=== PATIENT | female | born 1960 | race Hispanic/Latino ===

== ENCOUNTER → 2018-03-05 | Day surgery (SDC) | payer OTHER ==
[2018-02-18 09:13] LABS: BASOPHILS % 0.4 % (0.0-1.0); EOSINOPHILS # (AUTO) 0.1 (0.0-0.4); EOSINOPHILS % 1.1 % (0.0-6.0); HEMATOCRIT 42.7 % (34.2-44.1); HEMOGLOBIN 13.8 g/dL (12.0-16.0); LYMPHOCYTES % 24.6 % (18.0-39.1); MEAN CORPUSCULAR HEMOGLOBIN 29.3 pg (28-32); MEAN CORPUSCULAR HGB CONC 32.3 g/dL (31-35); MEAN CORPUSCULAR VOLUME 90.7 fL (81-99); MONOCYTES # (AUTO) 0.9 (0.2-0.8); MONOCYTES % 11.6 % (4.4-11.3); NEUTROPHILS # (AUTO) 4.8 (2.1-6.9); NEUTROPHILS % 60.5 % (38.7-80.0); PLATELET COUNT 221 x10e3/uL (140-360); RED BLOOD COUNT 4.71 x10e6/uL (3.6-5.1)
[~2018-03-05] MED LIST: AMLODIPINE BESYL5 MG PO; DEXAMETHASONE SOD PHOS INJ 4 MG/ML VIAL ONE; FENTANYL CITRATE/PF 100MCG/2 ML INJ ONE; HYDROCODONE/APAP 5MG-325MG TAB ONE; KETOROLAC TROMETHAMINE 30 MG/ML VIAL ONE; LEVOTHYROXINE50 MCG PO; LIDOCAINE HCL 2% JELLY 5 ML TUBE ONE; LIDOCAINE HCL 2% LOCAL INJ 5 ML SDV VIAL INJ ONE; LISINOPRIL10 MG PO; METOPROLOL SUCC25 MG PO; MIDAZOLAM HCL 2 MG/2 ML VIAL ONE; ONDANSETRON HCL INJ 2 MG/ML VIAL ONE; PROPOFOL IV EMULSION 10 MG/ML 20 ML VIAL ONE; SEVOFLURANE INHAL SOLN 250 ML PEN BTL ONE
--- OUTSIDE RECORDS SUMMARY | 2018-03-05 05:19 | XMS REPORT | Encounter Summary ---
Author Organization Unknown Address [address] [place] [id number] Phone [phone] Reason for Visit Medical Complaint Instructions 1. Influenza-like illness rapid flu (A+B) rapid strep group A, throat 2. Influenza due to Influenza virus, type B oseltamivir 75 mg capsule fluticasone 50 mcg/actuation nasal spray,suspension influenza (flu): care instructions benzonatate 200 mg capsule 3. Posterior rhinorrhea Discussion Note Pt in NAD, understands all information provided Plan of Care Patient Instructions Pt understands care instructions, will rest, increase fluids,monitor and treat fever with OCT tylenol/ibuprofen and practice good hand hygiene. Please seek care (PCP, Urgent Care, ER) or return to [facility] if symptoms get worse or do not resolve in 1 week. Reminders Provider Appointments None recorded. Lab Rapid Flu (A+B) 12/23/2017 [facility] Rapid Strep Group a, Throat 12/23/2017 [facility] Referral None recorded. Procedures None recorded. Surgeries None recorded. Imaging None recorded. Medications Name Start Date amlodipine 5 mg tablet TAKE 1 TABLET BY MOUTH EVERY DAY benzonatate 200 mg capsule Take 1 capsule 3 times a day by oral route for 5 days. chvcstpuksvoqok-mkzjwkdzexpvpjt-KL 2 mg-30 mg-10 mg/5 mL syrup TAKE 10 ML BY MOUTH EVERY 4 HOURS NEEDED Clenpiq 10 mg-3.5 gram-12 gram/160 mL oral solution DRINK 1 BOTTLE TWICE A DAY DIRECTED cyclobenzaprine 5 mg tablet TAKE 1 TABLET BY MOUTH 3 TIMES A DAY NEEDED diazepam 10 mg tablet TAKE 1 TABLET BY MOUTH FOR 1 HOUR BEFORE PROCEDURE Flucelvax Quad 3982-9719 (PF) 60 mcg (15 mcg x 4)/0.5 mL IM syringe TO BE ADMINISTERED BY PHARMACIST FOR IMMUNIZATION fluticasone 50 mcg/actuation nasal spray,suspension [place] 1 spray twice a day by intranasal route. IBU 600 mg tablet TAKE 1 TABLET BY MOUTH EVERY 6 HOURS NEEDED FOR PAIN/CRAMPS levothyroxine 50 mcg tablet TAKE 1 TABLET BY MOUTH EVERY MORNING lisinopril 40 mg tablet TAKE 1 TABLET BY MOUTH EVERY DAY methylprednisolone 4 mg tablets in a dose pack TAKE 6 TABLETS ON DAY 1 DIRECTED ON PACKAGE AND DECREASE BY 1 TAB EACH DAY FOR A TOTAL OF 6 DAYS metoprolol succinate ER 25 mg tablet,extended release 24 hr TAKE 1 TABLET BY MOUTH EVERY DAY misoprostol 200 mcg tablet INSERT 2 TABLETS VAGINALLY NIGHT BEFORE PROCEDURE(AT BEDTIME) THEN 1 BY MOUTH MORNING OF PROCEDURE mometasone 50 mcg/actuation nasal spray SPRAY 2 PUFFS INTO EACH NOSTRIL ONCE DAILY Myrbetriq 25 mg tablet,extended release TAKE 1 TABLET BY MOUTH EVERY DAY nabumetone 750 mg tablet TAKE 1 TABLET BY MOUTH DIRECTED TWICE A DAY oseltamivir 75 mg capsule Take 1 capsule twice a day by oral route for 5 days. oxybutynin chloride ER 10 mg tablet,extended release 24 hr TAKE 1 TABLET BY MOUTH EVERY DAY sulfamethoxazole 800 mg-trimethoprim 160 mg tablet TAKE 1 TABLET BY MOUTH TWICE DAILY FOR 10 DAYS tobramycin 0.3 %-dexamethasone 0.1 % eye drops,suspension INSTILL 1 DROP INTO THE AFFECTED EYE EVERY 6 HOURS FOR 5 DAYS tolterodine ER 2 mg capsule,extended release 24 hr TAKE 1 CAPSULE (2 MG) BY MOUTH ONCE DAILY FOR 30 DAYS Medications Administered None recorded. Vitals Height Weight BMI Blood Pressure 5 ft 2 in 213 lbs 39 kg/m2 124/80 mm[Hg] Lab Results Date Name Specimen Result Interpretation Description Value Range Status Address 12/23/2017 Rapid Flu (A+B) Influenza a negative [facility]: [address] [place] [address] Influenza B positive [facility]: [address] [place] [address] Rapid Strep Group a, Throat Result negative [facility]: [address] [place] [address] Swab Location Left and Right tonsillar pillars [facility]: [address] [place] [address] Allergies Code Code System Name Reaction Severity Status Onset NKDA Problems None recorded. Procedures None recorded. Vaccine List None recorded. Social History None recorded. Past Encounters 12/23/2017 Influenza-like Illness; Influenza Due to Influenza Virus, Type B; Posterior Rhinorrhea Garry Wilkerson, MAINTENANCE SERVICE SUPERVISOR-C: [address] [place] [address], Ph. History of Present Illness Sijee-Skqkdefxqo-Tvldizw Reported By: Patient HPI: Location: head/sinuses, throat. Quality: sore throat, nasal/sinus congestion. Duration: 3days. Severity: moderate. Context: no sick contacts, no foreign travel, non-smoker, allergies. Associated Symptoms: yellow sputum, fatigue, sweats, sore throat, headache Review of Systems:ROS as noted in the HPI Review of Systems Basic Reported By: Patient Physical Exam Adult Basic, Adult Female Complete Reported By: Patient Constitutional: General Appearance: healthy-appearing, well-nourished, well-developed. Level of Distress: NAD. Ambulation: ambulating normally Psychiatric: Mental Status: active and alert. Orientation: to time, to place, to person Eik-Dovz-Brput-Throat: Ears: no lesions on external ear, no outer ear tenderness, EACs clear, TMs clear. Hearing: no hearing loss. Nose: no lesions on external nose, nares patent, no septal deviation, nasal passages clear, sinus tenderness, nasal discharge--rhinorrhea, post nasal drip. Lips, Teeth, and Gums: no mouth or lip ulcers, no bleeding gums, normal dentition. Oropharynx: moist mucous membranes, no erythema, no exudates, tonsils not enlarged Lungs: Respiratory effort: no dyspnea, no tachypnea, no use of accessory muscles, no intercostal retractions. Auscultation: breath sounds normal Cardiovascular: Heart Auscultation: RRR, no murmurs Neurologic: Gait and Station: normal gait, normal station
--- OUTSIDE RECORDS SUMMARY | 2018-03-05 05:19 | XMS REPORT | Continuity of Care Document ---
Author Author [facility] Interface Address Unknown Phone Unavailable Problems Problem Status Onset Date Classification Date Reported Comments Source Posterior rhinorrhea 12/23/2017 Diagnosis 12/23/2017 [facility] Influenza due to Influenza virus, type B 12/23/2017 Diagnosis 12/23/2017 [facility] Influenza-like illness 12/23/2017 Diagnosis 12/23/2017 [facility] Medications Medication Details Route Status Patient Instructions Ordering Provider Order Date Source Amlodipine 5 MG Oral Tablet amlodipine 5 mg tablet TAKE 1 TABLET BY MOUTH EVERY DAY Active [facility] benzonatate 200 MG Oral Capsule benzonatate 200 mg capsule Take 1 capsule 3 times a day by oral route for 5 days. Active [facility] Brompheniramine Maleate 0.4 MG/ML / Dextromethorphan Hydrobromide 2 MG/ML / Pseudoephedrine Hydrochloride 6 MG/ML Oral Solution zeyyaylggunakra-xtcamxjscguocii-EB 2 mg-30 mg-10 mg/5 mL syrup TAKE 10 ML BY MOUTH EVERY 4 HOURS NEEDED Active [facility] Citric Acid 75 MG/ML / Magnesium Oxide 21.9 MG/ML / picosulfate sodium 0.0625 MG/ML Oral Solution [Clenpiq] Clenpiq 10 mg-3.5 gram-12 gram/160 mL oral solution DRINK 1 BOTTLE TWICE A DAY DIRECTED Active [facility] Cyclobenzaprine hydrochloride 5 MG Oral Tablet cyclobenzaprine 5 mg tablet TAKE 1 TABLET BY MOUTH 3 TIMES A DAY NEEDED Active [facility] Diazepam 10 MG Oral Tablet diazepam 10 mg tablet TAKE 1 TABLET BY MOUTH FOR 1 HOUR BEFORE PROCEDURE Active [facility] 0.5 ML influenza A virus A/ (H1N1) antigen 0.03 MG/ML / influenza A virus A/ (H3N2) antigen 0.03 MG/ML / influenza B virus B/Ryan Bakari antigen 0.03 MG/ML / influenza B virus B/ antigen 0.03 MG/ML Prefilled Syringe [Flucelvax Quadrivalent 9772-2705] Flucelvax Quad [id number] (PF) 60 mcg (15 mcg x 4)/0.5 mL IM syringe TO BE ADMINISTERED BY PHARMACIST FOR IMMUNIZATION Active [facility] Fluticasone propionate 0.05 MG/ACTUAT Metered Dose Nasal [place] fluticasone 50 mcg/actuation nasal spray,suspension [place] 1 spray twice a day by intranasal route. Active [facility] Ibuprofen 600 MG Oral Tablet [Ibu] IBU 600 mg tablet TAKE 1 TABLET BY MOUTH EVERY 6 HOURS NEEDED FOR PAIN/CRAMPS Active [facility] Levothyroxine Sodium 0.05 MG Oral Tablet levothyroxine 50 mcg tablet TAKE 1 TABLET BY MOUTH EVERY MORNING Active [facility] Lisinopril 40 MG Oral Tablet lisinopril 40 mg tablet TAKE 1 TABLET BY MOUTH EVERY DAY Active [facility] methylprednisolone 4 mg tablets in a dose pack methylprednisolone 4 mg tablets in a dose pack TAKE 6 TABLETS ON DAY 1 DIRECTED ON PACKAGE AND DECREASE BY 1 TAB EACH DAY FOR A TOTAL OF 6 DAYS Active [facility] 24 HR metoprolol succinate 25 MG Extended Release Oral Tablet metoprolol succinate ER 25 mg tablet,extended release 24 hr TAKE 1 TABLET BY MOUTH EVERY DAY Active [facility] Misoprostol 0.2 MG Oral Tablet misoprostol 200 mcg tablet INSERT 2 TABLETS VAGINALLY NIGHT BEFORE PROCEDURE(AT BEDTIME) THEN 1 BY MOUTH MORNING OF PROCEDURE Active [facility] mometasone furoate 0.05 MG/ACTUAT Metered Dose Nasal [place] mometasone 50 mcg/actuation nasal spray SPRAY 2 PUFFS INTO EACH NOSTRIL ONCE DAILY Active [facility] 24 HR mirabegron 25 MG Extended Release Oral Tablet [Myrbetriq] Myrbetriq 25 mg tablet,extended release TAKE 1 TABLET BY MOUTH EVERY DAY Active [facility] nabumetone 750 MG Oral Tablet nabumetone 750 mg tablet TAKE 1 TABLET BY MOUTH DIRECTED TWICE A DAY Active [facility] Oseltamivir 75 MG Oral Capsule oseltamivir 75 mg capsule Take 1 capsule twice a day by oral route for 5 days. Active [facility] 24 HR Oxybutynin chloride 10 MG Extended Release Oral Tablet oxybutynin chloride ER 10 mg tablet,extended release 24 hr TAKE 1 TABLET BY MOUTH EVERY DAY Active [facility] Sulfamethoxazole 800 MG / Trimethoprim 160 MG Oral Tablet sulfamethoxazole 800 mg-trimethoprim 160 mg tablet TAKE 1 TABLET BY MOUTH TWICE DAILY FOR 10 DAYS Active [facility] Dexamethasone 1 MG/ML / Tobramycin 3 MG/ML Ophthalmic Suspension tobramycin 0.3 %-dexamethasone 0.1 % eye drops,suspension INSTILL 1 DROP INTO THE AFFECTED EYE EVERY 6 HOURS FOR 5 DAYS Active [facility] 24 HR tolterodine tartrate 2 MG Extended Release Oral Capsule tolterodine ER 2 mg capsule,extended release 24 hr TAKE 1 CAPSULE (2 MG) BY MOUTH ONCE DAILY FOR 30 DAYS Active [facility] Allergies, Adverse Reactions, Alerts Substance Category Reaction Severity Reaction type Status Date Reported Comments Source Immunizations Immunization Date Given Site Status Last Updated Comments Source Results Order Name Results Value Reference Range Date Interpretation Comments Source Influenza A negative 12/23/2017 [facility] Influenza B positive 12/23/2017 [facility] RESULT negative 12/23/2017 [facility] SWAB LOCATION Left and Right tonsillar pillars 12/23/2017 [facility] Vital Signs Vital Sign Value Date Comments Source Diastolic (mm Hg) 80 12/23/2017 [facility] Height 62 12/23/2017 [facility] Systolic (mm Hg) 124 12/23/2017 [facility] Weight 213 12/23/2017 [facility] Encounters Location Location Details Encounter Type Encounter Number Reason For Visit Attending Provider ADM Date DC Date Status Source [place] - [id number] Garry Wilkerson NP-C: [address] [place] [address], Ph. [id number] Garry Wilkerson 12/23/2017 [facility] Procedures Procedure Code Date Perfomer Comments Source
--- NOTE | 2018-03-05 09:34 | Operative Report ---
DATE OF PROCEDURE: March 05, 2018 INTERIOR DESIGN PROFESSIONAL: None PREOPERATIVE DIAGNOSES 1. Postmenopausal bleeding. 2. Stenotic cervical os. POSTOPERATIVE DIAGNOSES 1. Postmenopausal bleeding. 2. Stenotic cervical os. 3. Endometrial polyp. PROCEDURES PERFORMED 1. Dilatation and curettage. 2. Hysteroscopic polypectomy. ANESTHESIA: General. ESTIMATED BLOOD LOSS: Minimal. COMPLICATIONS: None. FINDINGS: The patient has an approximately 6-week size uterus with a shortened and stenotic cervix. Hysteroscopic findings revealed overall normal endometrial cavity with ostia visualized bilaterally, and a small endometrial polyp on the posterior aspect of the uterus. SPECIMENS: Included endometrial curettings with fragments of endometrial polyp. 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 PROCEDURE NOTE: The risks, benefits, alternatives, and indications of the procedure were discussed with the patient and informed consent was obtained. The patient was taken to the operating room where general anesthesia was obtained without difficulty. She was prepped and draped in a typical sterile fashion in the dorsal lithotomy position in [facility]. A time out was done. A weighted speculum was placed in the vagina, and the anterior lip of the cervix was grasped with a single-toothed tenaculum. The cervix was then sequentially dilated with Aretha dilators to a #24 Aretha allowing advancement of the True Clear hysteroscope to the uterine fundus. The uterine cavity was distended using normal saline as a distention media. The cavity was then explored with the above-noted findings. The True Clear device was then used to morcellate and remove the polyps, and to perform sharp curettage under direct visualization. The scope was then removed from the patient, and a sharp curettage was performed until a gritty texture was noted in all 4 quadrants. All curettings were sent together for pathology. Survey of the uterine cavity then revealed a normal appearing and intact cavity. All instruments were removed from the patient's vagina. The tenaculum sites and uterus were noted to be hemostatic. The patient was awakened and brought to the recovery room in stable condition. Job#: [id number] [place]
[2018-03-05 09:36] VITALS: BP 137/85
== END | disposition home or self-care (01) ==
LOC: OR 05:16
PROVIDERS: ATTEND Obstetrics & Gynecology Obstetrics
DX: N84.0 Polyp of corpus uteri (principal); N88.2 Stricture and stenosis of cervix uteri; I10 Essential (primary) hypertension; E03.9 Hypothyroidism, unspecified; Z01.810 Encounter for preprocedural cardiovascular examination; Z01.812 Encounter for preprocedural laboratory examination
CPT/HCPCS: 36415; 58558; 85025; 88305; 93005; J1100; J1885; J2001 ×2; J2250; J2405; J2704

== ENCOUNTER → 2023-12-24 | Day surgery (SDC) | payer OTHER ==
[~2023-12-24] MED LIST changes: +BLOOD PRESSURE; -DEXAMETHASONE SOD PHOS INJ 4 MG/ML VIAL ONE; -FENTANYL CITRATE/PF 100MCG/2 ML INJ ONE; -HYDROCODONE/APAP 5MG-325MG TAB ONE; +HYOSCYAMINE SULFATE 0.5 MG/ML INJ ONE; +JARDIANCE10 MG PO; +KETAMINE HCL INJ 50 MG/ML 10 ML VIAL ONE; -KETOROLAC TROMETHAMINE 30 MG/ML VIAL ONE; -LIDOCAINE HCL 2% JELLY 5 ML TUBE ONE; -MIDAZOLAM HCL 2 MG/2 ML VIAL ONE; -ONDANSETRON HCL INJ 2 MG/ML VIAL ONE; -SEVOFLURANE INHAL SOLN 250 ML PEN BTL ONE; +TRESIBA FL100 UNIT/1 SQ
[2023-12-24] MEDS: LACTATED RINGER'S 1,000 ML ONE (11:51)
[2023-12-24 13:20] VITALS: TEMP 97.6
[2023-12-24 13:50] VITALS: BP 121/65; PULSE 89; RESP 16; O2SAT 98
== END | disposition home or self-care (01) ==
LOC: OR 11:20
PROVIDERS: ATTEND Internal Medicine Gastroenterology
DX: K22.2 Esophageal obstruction (principal); Z85.038 Personal history of other malignant neoplasm of large intestine; K29.50 Unspecified chronic gastritis without bleeding; K20.90 Esophagitis, unspecified without bleeding; K44.9 Diaphragmatic hernia without obstruction or gangrene; K59.00 Constipation, unspecified; K64.8 Other hemorrhoids; K21.9 Gastro-esophageal reflux disease without esophagitis; Z71.3 Dietary counseling and surveillance; D64.9 Anemia, unspecified; I10 Essential (primary) hypertension; E11.9 Type 2 diabetes mellitus without complications; E78.00 Pure hypercholesterolemia, unspecified; R05.9 Cough, unspecified; E03.9 Hypothyroidism, unspecified; E66.01 Morbid (severe) obesity due to excess calories; G89.29 Other chronic pain; Z01.810 Encounter for preprocedural cardiovascular examination; Z79.4 Long term (current) use of insulin; Z79.899 Other long term (current) drug therapy; Z68.34 Body mass index [BMI] 34.0-34.9, adult; Z85.3 Personal history of malignant neoplasm of breast; Z80.0 Family history of malignant neoplasm of digestive organs
CPT/HCPCS: 43239; 43450; 45330; 93005; J1980; J2001; J2470; J2704; J7121; 45378

== ENCOUNTER → 2024-01-11 | Day surgery (SDC) | payer OTHER ==
[~2024-01-11] MED LIST changes: +JARDIANCE25 MG PO; -KETAMINE HCL INJ 50 MG/ML 10 ML VIAL ONE; +LOSARTAN POTAS100 MG PO; +PANTOPRAZOLE SO40 MG PO; +ROSUVASTATIN CA20 MG PO
[2024-01-11] MEDS: LACTATED RINGER'S 1,000 ML ONE (14:07)
[2024-01-11 16:34] VITALS: TEMP 97.3
[2024-01-11 16:50] VITALS: BP 103/57; PULSE 76; RESP 16; O2SAT 98
[2024-01-11 17:10] LABS: WBC,FECAL (FECAL LACTOFERRIN) POSITIVE (NEGATIVE)
[2024-01-13 21:06] LABS: C-REACTIVE PROTEIN <1 mg/L (0-10)
[2024-01-16 05:15] LABS: ENDOMYSIAL ANTIBODIES, IGA Negative (Negative)
[2024-01-16 05:16] LABS: IMMUNOGLOBULIN A 505 mg/dL (87-352); TISSUE TRANSGLUTAMINASE IGA AB <2 U/mL (0-3)
== END | disposition home or self-care (01) ==
LOC: OR 13:42
PROVIDERS: ATTEND Internal Medicine Gastroenterology
DX: K52.9 Noninfective gastroenteritis and colitis, unspecified (principal); K62.1 Rectal polyp; K62.89 Other specified diseases of anus and rectum; K64.8 Other hemorrhoids; K57.30 Diverticulosis of large intestine without perforation or abscess without bleeding; Z85.038 Personal history of other malignant neoplasm of large intestine; Z90.49 Acquired absence of other specified parts of digestive tract; I10 Essential (primary) hypertension; E78.5 Hyperlipidemia, unspecified; E11.9 Type 2 diabetes mellitus without complications; K21.9 Gastro-esophageal reflux disease without esophagitis; Z79.84 Long term (current) use of oral hypoglycemic drugs; Z79.4 Long term (current) use of insulin; Z87.891 Personal history of nicotine dependence; Z90.13 Acquired absence of bilateral breasts and nipples; Z92.21 Personal history of antineoplastic chemotherapy; Z79.899 Other long term (current) drug therapy
CPT/HCPCS: 45380; 82784; 83516; 83630; 83993; 86140; 86256; 87045; 87177; 87324; 87328; 87449; J1980; J2003; J2704; J7121